=== PATIENT | female | born 1985 | race Hispanic/Latino ===

== ENCOUNTER 2017-04-26 15:29 | Emergency (ER) | payer MEDICAID ==
[~2017-04-26] VITALS: Ht 157.5 cm; Wt 136.0 kg
[~2017-04-26 15:29] MED LIST: ACYCLOVIR200 MG PO; AMPICILLIN500 MG PO; ANAPROX275 MG OR; CLARITHROMYC500 M2 PO; EQ OMEPRAZOLE20 MG PO; FERR SULFATE325 MG PO; FLEXERIL OR; HYDROCHLOR12.5 MG/CA PO; IBUPROFEN600 MG PO; LABETALOL100 MG PO; LISINOPRIL2.5 MG PO; LORTAB5 PO; NAPROSYN500 MG PO; OMEPRAZOLE20 MG PO; PRENATAL1 TA1 PO; PREVPAC PO; ULTRAM50 MG OR; VICODIN1 TAB OR
[2017-04-26 16:03] LABS: HEMOGLOBIN 12.3 g/dl (12.0-16.0); IMMATURE GRANULOCYTES 0.3 % (0.0-1.0); MEAN CELL VOLUME 84.5 fL CALC (80.0-100.0); MEAN CORPUSCULAR HGB 28.9 pG CALC (26.0-32.0); MEAN CORPUSCULAR HGB CONC 34.2 g/L CALC (32.0-36.0); NEUT# 4.84 thou/uL (2.00-7.15); RED BLOOD COUNT 4.26 mill/uL (4.20-5.60); RED CELL DISTRI WIDTH 12.1 % (11.5-15.5)
[2017-04-26 16:44] LABS: ALBUMIN 4.5 g/dL (3.2-5.0); ALKALINE PHOSPHATASE 91 u/l (38-126); ANION GAP 15 (6-22 (CALC)); BILIRUBIN, TOTAL 0.5 mg/dL (0.0-1.4); BUN 20 mg/dL (7-17); BUN/CREATININE RATIO 29 (12-20 (CALC)); CALCIUM 9.2 mg/dL (8.4-10.2); CARBON DIOXIDE 22 mmol/l (22-30); CHLORIDE 108 mmol/l (95-108); CREATININE 0.7 mg/dL (0.5-1.0); GFR > 60 ML/MIN (>=60 (CALC)); GFR FOR AFR.AMER. > 60 ML/MIN (>=60 (CALC)); GLUCOSE 93 mg/dL (65-105); LIPASE 91 u/l (23-300); SGOT/AST 34 u/l (14-36); SGPT/ALT 38 u/l (9-52); SODIUM 141 mmol/l (137-146); TOTAL PROTEIN 7.5 g/dL (6.3-8.2)
[2017-04-26 17:22] LABS: URINE BILIRUBIN - DIPSTICK NEGATIVE (NEGATIVE); URINE BLOOD DIPSTICK TRACE-INTACT (NEGATIVE); URINE CLARITY CLEAR; URINE COLOR YELLOW; URINE GLUCOSE - DIPSTICK NEGATIVE (NEGATIVE); URINE KETONE NEGATIVE (NEGATIVE); URINE NITRITE - DIPSTICK NEGATIVE (Negative); URINE PH 5.5 (4.5-8.0); URINE PROTEIN - DIPSTICK NEGATIVE (NEG-TRACE); URINE SPECIFIC GRAVITY >=1.030; URINE UROBILINOGEN - DIPSTICK 0.2 E.U./dL (0.2)
[2017-04-26 17:43] LABS: URINE LEUK ESTERASE SMALL (NEGATIVE)
[2017-04-26 17:51] LABS: URINE SQUAMOUS EPITHELIAL CELL FEW EPI/hpf (0-FEW)
[2017-04-26 17:52] LABS: URINE BACTERIA RARE hpf
[2017-04-26] MEDS ORDERED: CEPHALEXIN500 M1 PO (17:56)
[2017-04-26] MEDS ORDERED: LISINOPRIL10 MG PO (17:56)
[2017-04-26 18:03] VITALS: BP 168/86
== END 2017-04-26 18:17 | disposition home or self-care (01) | DRG 690 ==
LOC: ED 15:29
PROVIDERS: Family Medicine
DX: N39.0 Urinary tract infection, site not specified (principal); I10 Essential (primary) hypertension; H53.8 Other visual disturbances; R11.2 Nausea with vomiting, unspecified; R51 Headache; Y92.89 Other specified places as the place of occurrence of the external cause

== ENCOUNTER 2017-12-23 11:07 | Observation (INO) | payer BC ==
[2017-12-23] VITALS (9 sets, daily range): BP systolic 116–159; BP diastolic 62–99
[~2017-12-23] VITALS: Ht 157.5 cm; Wt 86.8 kg
[~2017-12-23 11:07] MED LIST changes: +CEPHALEXIN500 M1 PO; +LISINOPRIL10 MG PO
--- NOTE | 2017-12-23 11:25 | NUR ---
PATIENT AMBULATED TO ROOM WITH STEADY GAIT
[2017-12-23 11:46] LABS: HEMATOCRIT 39.3 % (37.0-47.0); HEMOGLOBIN 13.3 g/dl (12.0-16.0); IMMATURE GRANULOCYTES 0.2 % (0.0-1.0); MEAN CORPUSCULAR HGB 28.4 pG CALC (26.0-32.0); MEAN CORPUSCULAR HGB CONC 33.8 g/L CALC (32.0-36.0); NEUT# 3.82 thou/uL (2.00-7.15); RED BLOOD COUNT 4.68 mill/uL (4.20-5.60); RED CELL DISTRI WIDTH 12.4 % (11.5-15.5)
--- NOTE | 2017-12-23 12:07 | NUR ---
PT STATES SHE RAN OUT OF HER BLOOD PRESSURE MEDICATIONS APPROX TWO WEEKS AGO AND HAD GONE TO FOR SCRIPT, BUT HAS NOT PICKED IT UP YET. DENIES ANY HEADACHE , DENIES ANY V/N.
[2017-12-23 12:13] LABS: ANION GAP 16 (6-22 (CALC)); BUN 11 mg/dL (7-17); BUN/CREATININE RATIO 19 (12-20 (CALC)); CARBON DIOXIDE 26 mmol/l (22-30); CHLORIDE 105 mmol/l (95-108); CREATININE 0.5 mg/dL (0.5-1.0); GFR > 60 ML/MIN (>=60 (CALC)); GFR FOR AFR.AMER. > 60 ML/MIN (>=60 (CALC)); POTASSIUM 4.3 mmol/l (3.5-5.1); SODIUM 143 mmol/l (137-146)
--- NOTE | 2017-12-23 12:40 | NUR ---
PT BECAME NAUSEATED, NOTIFIED AND ORDERS RECEIVED
--- NOTE | 2017-12-23 12:44 | NUR ---
PT WAS GIVEN THE [facility], COMPUTER TURNED OFF BEFORE I SUBMITTED, I HAD THROWN BOTTLE AWAY SO COULD NOT SCAN MEDICATIONL.
--- NOTE | 2017-12-23 12:59 | NUR ---
BLOOD PRESSURE DOWN AND PT STATES FEELS MUCH BETTER.
--- NOTE | 2017-12-23 14:06 | NUR ---
PT STATES SHE STILL DOESNT FEEL GOOD, STARTED FEELING WEAK AGAIN, NO VOMITING, JUST NAUSEATED. ADVISED OF POSSIBLE ADMISSION, PT VOICES UNDERSTANDING
[2017-12-23 14:11] LABS: SGOT/AST 47 u/l (14-36); SGPT/ALT 51 u/l (9-52)
--- NOTE | 2017-12-23 14:16 | NUR ---
BLOOD PRESSURE RETAKEN AND BLOOD PRESSURE IS 188/106, NOTIFIED. ORDERS WILL BE RECEIVED FOR JOSELIN MARTIN
--- NOTE | 2017-12-23 14:37 | NUR ---
WENT IN TO START CARDIZEM DRIP, PTS FAMILY IS AT BEDSIDE, BLOOD PRESSURE IS DOWN TO 160/89, NOTIFIED, WILL KEEP CARDIZEM ON HAND BUT WILL NOT GIVE AT THIS TIME
--- NOTE | 2017-12-23 14:51 | NUR ---
PT STATES AFTER THE PHENERGAN SHOT DOESNT FEEL NAUSEATED. EYES ARE RED FROM CRYING.
--- NOTE | 2017-12-23 15:36 | NUR ---
REPORT CALLED TO RAUL FOR CONTINUATION OF CARE
--- NOTE | 2017-12-23 15:46 | NUR ---
PT TAKEN TO FLOOR PER CARDIAC MONITER.
--- NOTE | 2017-12-23 15:54 | NUR ---
Pt arrived to floor via stretcher from ER at 1554 alert and oriented. Presented to ER for c/o elevated blood pressure. C/o headache pain. Afebrile, no c/o chest pain or SOB. No N&V. S/L to right AC 20 gauge. Skin warm to touch and mildly clammy. Assessment completed, family in waiting room. IV Flushed with 5cc NS w/o difficulty. Mother and niece in room. Mother only speaks croatian. Niece translates for her. V/S stable, afebrile. No acute distress at this time.
--- NOTE | 2017-12-23 17:31 | NUR ---
PT RESTING QUIETLY. C/O PHOTOPHOBIA AND SUPRAPUBIC PAIN. STATES SHE HAS AN IUD SINCE 03/2016 AND HAS PAIN UPON INTERCOURSE. NO MENSTRAL CYCLES. DR. MASCORRO HERE TO SEE PATIENT. AFEBRILE, V/S WNL, NO ACUTE DISTRESS.
--- NOTE | 2017-12-23 17:51 | NUR ---
PT UP TO BSC MOST OF THIS SHIFT. ALERT, SLEEPING INTERMITTENLY. DENIES, CHEST PAIN, SOB, NAUSEA. NO ACUTE DISTRESS NOTED. HERE FOR A SHORT VISIT. PT IS PLEASANT AND APPROPRIATE. V/S WNL, AFEBRILE.
--- NOTE | 2017-12-23 17:55 | NUR ---
PT UP IN BSC, SLEEPING. CONTINUES TO VOICE CONCERNS REGARDING SKIN ITCHING. BENADRYL GIVEN WITH SEDATIVE RESULTS. NO RED OR OPEN AREAS NTED. SKIN IS DRY. NO EDEMA, AFEBRILE, V/S WNL. SPEECH IS CLEAR AND PT IS APPROPRIATE. NO ACUTE DISTRESS.
--- NOTE | 2017-12-23 18:25 | NUR ---
PT TEARFUL. STATES SHE IS HAVING TROUBLE COPING A BUSY MOTHER OF 4 CHILDREN WITH NO FATHER FIGURE ACCOUNTABLE. 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 SHE DOES NOT EXPRESS ANY THOUGHTS OF HURTING HERSELF OR OTHERS. SHE IS ANXIOUS AND STATES THIS IS WHY HER BLOOD PRESSURE IS HIGH. CURRENTLY IN NO ACUTE DISTRESS. MEDS GIVEN.
--- NOTE | 2017-12-23 19:25 | NUR ---
DR CLAY NOTIFIED OF PT CRYING IN BED. ORDERS RECEIVED WILL MEDICATE PER ORDERS
--- NOTE | 2017-12-23 19:45 | NUR ---
PT RESTING IN BED CRYING. VISITORS IN ROOM. PT STATES THAT SHE FEELS NAUSEATED. INFORMED PT THAT SHE WAS GIVEN ANTI NAUSEA MEDS AT 1800. PT VERBALIZED UNDERSTANDING. MEDICATED WITH 1MG OF ATIVAN PER MD ORDERS. CALL LIGHT IN REACH. INSTRUCTED PT TO CALL FOR ANY ASSISTANCE. PT VERBALIZED UNDERSTANDING. SHIFT ASSESSMENT COMPLETED AT THIS TIME. WILL CONTINUE TO MONITOR
--- NOTE | 2017-12-23 20:32 | NUR ---
SPOKE WITH VISITORS THAT PT NEEDS TO REST.
--- NOTE | 2017-12-23 21:35 | NUR ---
PT RESTING IN BED WITH EYES CLOSED. RESP ARE EVEN AND UNLABORED. NO DISTRESS NOTED. CALL LIGHT IN REACH. WILL CONTINUE TOMONITOR
--- NOTE | 2017-12-24 | NUR ---
PT RESTING IN BED WITH EYES CLOSED. RESP ARE EVEN AND UNLABORED. NO DISTRESS NOTED. IV REMAINS PATENT. REMAINS SR ON MONITOR. CALL LIGHT IN REACH. WILL CONTINUE TO MONITOR
[2017-12-24 01:00] VITALS: BP 114/58
--- NOTE | 2017-12-24 02:03 | NUR ---
PT RESTING IN BED WITH EYES CLOSED. RESP ARE EVEN AND UNLABORED. NO DISTRESS NOTED. IV PATENET. REMAINS SR ON MONITOR. CALL LIGHT IN REACH. WILL CONTINUE TO MONITOR
[2017-12-24 03:00] VITALS: BP 102/64
--- NOTE | 2017-12-24 04:03 | NUR ---
PT RESTING IN BED WITH EYES CLOSED. RESP ARE EVEN AND UNLABORED. NO DISTRESS NOTED. CALL LIGHT IN REACH. WILL CONTINUE TO MONITOR
--- NOTE | 2017-12-24 05:29 | NUR ---
LAB INTO DRAW AM LABS
--- NOTE | 2017-12-24 05:53 | NUR ---
PT ASSISTED TO BSC. PT VOIDED. PT ASSISTED BACK TO BED. CALL LIGHT IN REACH. WILL CONTINUE TO MONITOR
[2017-12-24 06:00] VITALS: BP 98/65
[2017-12-24 06:22] VITALS: BP 98/65
[2017-12-24 06:22] LABS: HEMATOCRIT 39.2 % (37.0-47.0); HEMOGLOBIN 13.2 g/dl (12.0-16.0); MEAN CELL VOLUME 85.4 fL CALC (80.0-100.0); MEAN CORPUSCULAR HGB 28.8 pG CALC (26.0-32.0); MEAN CORPUSCULAR HGB CONC 33.7 g/L CALC (32.0-36.0); RED BLOOD COUNT 4.59 mill/uL (4.20-5.60); RED CELL DISTRI WIDTH 12.5 % (11.5-15.5)
[2017-12-24 06:37] LABS: ANION GAP 19 (6-22 (CALC)); BUN 12 mg/dL (7-17); BUN/CREATININE RATIO 16 (12-20 (CALC)); CARBON DIOXIDE 23 mmol/l (22-30); CHLORIDE 103 mmol/l (95-108); CREATININE 0.7 mg/dL (0.5-1.0); GFR > 60 ML/MIN (>=60 (CALC)); GFR FOR AFR.AMER. > 60 ML/MIN (>=60 (CALC)); POTASSIUM 4.1 mmol/l (3.5-5.1); SODIUM 140 mmol/l (137-146)
--- NOTE | 2017-12-24 07:30 | NUR ---
BREAKFAST TRAY SET UP
--- NOTE | 2017-12-24 07:45 | NUR ---
PT RESTING IN BED, ALERT AND ABLE TO MAKE NEEDS KNOWN. PT REPORTS FEELING DIZZY WHEN SITTING UP. SR ON TELEMETRY. PT DENIES CHEST PAIN, SOB OR DISTRESS AT THIS TIME. LS CLEAR THROUGHOUT. BSX4 ACTIVE. CALL LIGHT IN REACH, WILL MONITOR.
[2017-12-24 08:00] VITALS: BP 118/66
--- NOTE | 2017-12-24 08:00 | NUR ---
PT RESTING IN BED, SR ON TELEMETRY. AFEBRILE. PT DENIES CHEST PAIN,SOB OR DISTRESS AT THIS TIME. CALL LIGHT IN REACH, WILL MONITOR
[2017-12-24 09:25] VITALS: BP 122/65
--- NOTE | 2017-12-24 09:30 | NUR ---
PT UP TO BSC, TOLERATED WELL. WILL MONITOR
--- NOTE | 2017-12-24 10:00 | NUR ---
CHAPARRITA BALL AT FOR ASSESSMENT.
--- NOTE | 2017-12-24 10:15 | NUR ---
DR. LANG AT BS FOR ASSESSMENT
[2017-12-24] MEDS ORDERED: LISINOPRIL20 MG PO ×2 (10:30)
--- NOTE | 2017-12-24 11:04 | NUR ---
PT RESTING IN BED, EYES CLOSED. PT OFFERS NO COMPLAINTS AT THIS TIME. WILL MONITOR
--- NOTE | 2017-12-24 11:55 | NUR ---
DISCONTINUED SL TO RAC, CATHETER INTACT. PT TOLERATED WELL.
--- NOTE | 2017-12-24 12:10 | NUR ---
Discharge instructions given. Patient verbalizes understanding of same. Discharged in stable condition via Wheelchair to Home with family. All belongings sent with pt.
== END 2017-12-24 12:10 | disposition home or self-care (01) | DRG 305 ==
LOC: ED 11:07 → ED-I 13:52 → ED 14:15 → ICU 14:16
PROVIDERS: Family Medicine; ADMIT Internal Medicine; ATTEND Internal Medicine
DX: I16.0 Hypertensive urgency (principal); I10 Essential (primary) hypertension; F17.210 Nicotine dependence, cigarettes, uncomplicated; Z91.14 Patient's other noncompliance with medication regimen
CPT/HCPCS: J2060

== ENCOUNTER 2018-09-23 12:16 | Emergency (ER) | payer BC ==
[~2018-09-23] VITALS: Ht 157.5 cm; Wt 86.4 kg
[~2018-09-23 12:16] MED LIST changes: +LISINOPRIL20 MG PO
[2018-09-23 13:31] LABS: URINE BILIRUBIN - DIPSTICK NEGATIVE (NEGATIVE); URINE BLOOD DIPSTICK TRACE-LYSED (NEGATIVE); URINE COLOR YELLOW; URINE GLUCOSE - DIPSTICK NEGATIVE (NEGATIVE); URINE KETONE NEGATIVE (NEGATIVE); URINE LEUK ESTERASE NEGATIVE (NEGATIVE); URINE NITRITE - DIPSTICK NEGATIVE (Negative); URINE PROTEIN - DIPSTICK TRACE mg/dL (NEG-TRACE); URINE SPECIFIC GRAVITY >=1.030; URINE UROBILINOGEN - DIPSTICK 0.2 E.U./dL (0.2)
[2018-09-23 13:32] LABS: HEMOGLOBIN 12.6 g/dl (12.0-16.0); IMMATURE GRANULOCYTES 0.2 % (0.0-5.0); MEAN CELL VOLUME 83.9 fL CALC (80.0-100.0); MEAN CORPUSCULAR HGB 27.8 pG CALC (26.0-32.0); MEAN CORPUSCULAR HGB CONC 33.2 g/L CALC (32.0-36.0); NEUT# 4.5 thou/uL (2.00-7.15); RED BLOOD COUNT 4.53 mill/uL (4.20-5.60); RED CELL DISTRI WIDTH 11.9 % (11.5-15.5)
[2018-09-23 13:40] LABS: BARBITURATES NEGATIVE (NEGATIVE); COCAINE NEGATIVE (NEGATIVE); METHADONE NEGATIVE (NEGATIVE); OXCYCODONE NEGATIVE (NEGATIVE); TETRAHYDROCANNABIONOL NEGATIVE (NEGATIVE); TRICYLIC ANTIDEPRESSANTS NEGATIVE (NEGATIVE)
[2018-09-23 13:54] LABS: ALBUMIN 4.4 g/dL (3.2-5.0); ALKALINE PHOSPHATASE 106 u/l (38-126); ANION GAP 14 (6-22 (CALC)); BILIRUBIN, TOTAL 0.5 mg/dL (0.0-1.4); BUN 10 mg/dL (7-17); BUN/CREATININE RATIO 20 (12-20 (CALC)); CARBON DIOXIDE 26 mmol/l (22-30); CHLORIDE 103 mmol/l (95-108); CREATININE 0.5 mg/dL (0.5-1.0); GFR > 60 ML/MIN (>=60 (CALC)); GFR FOR AFR.AMER. > 60 ML/MIN (>=60 (CALC)); POTASSIUM 4.4 mmol/l (3.5-5.1); SGOT/AST 23 u/l (14-36); SODIUM 139 mmol/l (137-146); TOTAL PROTEIN 7.7 g/dL (6.3-8.2)
[2018-09-23] MEDS ORDERED: PYRIDIUM200 MG PO (15:03)
[2018-09-23] MEDS ORDERED: TORADOL PO (15:03)
[2018-09-23 15:19] VITALS: BP 178/120
== END 2018-09-23 15:28 | disposition home or self-care (01) | DRG 761 ==
LOC: ED 12:16
PROVIDERS: Emergency Medicine
DX: N83.201 Unspecified ovarian cyst, right side (principal); I10 Essential (primary) hypertension
CPT/HCPCS: Q9967

== ENCOUNTER 2019-04-28 10:30 | Emergency (ER) | payer SELFPAY ==
[~2019-04-28] VITALS: Ht 157.5 cm; Wt 100.0 kg
[~2019-04-28 10:30] MED LIST changes: +PYRIDIUM200 MG PO; +TORADOL PO
[2019-04-28 10:55] LABS: HEMATOCRIT 39.3 % (37.0-47.0); HEMOGLOBIN 13.2 g/dl (12.0-16.0); IMMATURE GRANULOCYTES 0.3 % (0.0-5.0); MEAN CELL VOLUME 82.6 fL CALC (80.0-100.0); MEAN CORPUSCULAR HGB 27.7 pG CALC (26.0-32.0); MEAN CORPUSCULAR HGB CONC 33.6 g/L CALC (32.0-36.0); NEUT# 7.96 thou/uL (2.00-7.15); RED BLOOD COUNT 4.76 mill/uL (4.20-5.60); RED CELL DISTRI WIDTH 12.6 % (11.5-15.5)
[2019-04-28 11:19] LABS: ANION GAP 15 (6-22 (CALC)); BUN 8 mg/dL (7-17); BUN/CREATININE RATIO 16 (12-20 (CALC)); CARBON DIOXIDE 22 mmol/l (22-30); CHLORIDE 105 mmol/l (95-108); CREATININE 0.5 mg/dL (0.5-1.0); GFR > 60 ML/MIN (>=60 (CALC)); GFR FOR AFR.AMER. > 60 ML/MIN (>=60 (CALC)); SODIUM 138 mmol/l (137-146)
[2019-04-28] MEDS ORDERED: NORVASC5 M1 PO (12:31)
[2019-04-28 12:35] VITALS: BP 204/100
== END 2019-04-28 12:43 | disposition home or self-care (01) | DRG 305 ==
LOC: ED 10:30
PROVIDERS: Family Medicine
DX: I10 Essential (primary) hypertension (principal)

== ENCOUNTER 2020-03-22 01:17 | Inpatient (IN) | payer SELFPAY ==
[~2020-03-22] VITALS: Ht 157.5 cm; Wt 90.9 kg
[2020-03-22] VITALS (9 sets, daily range): BP systolic 127–194; BP diastolic 58–122
[~2020-03-22 01:17] MED LIST changes: +NORVASC5 M1 PO
[2020-03-22 01:50] LABS: HEMOGLOBIN 12.8 g/dl (12.0-16.0); IMMATURE GRANULOCYTES 0.4 % (0.0-5.0); MEAN CORPUSCULAR HGB 27.9 pG CALC (26.0-32.0); MEAN CORPUSCULAR HGB CONC 33.7 g/dL CAL (32.0-36.0); NEUT# 7.68 thou/uL (2.00-7.15); RED BLOOD COUNT 4.58 mill/uL (4.20-5.60); RED CELL DISTRI WIDTH 12.6 % (11.5-15.5); URINE BILIRUBIN - DIPSTICK NEGATIVE (NEGATIVE); URINE BLOOD DIPSTICK TRACE-INTACT (NEGATIVE); URINE COLOR YELLOW; URINE GLUCOSE - DIPSTICK NEGATIVE (NEGATIVE); URINE KETONE NEGATIVE (NEGATIVE); URINE LEUK ESTERASE NEGATIVE (NEGATIVE); URINE NITRITE - DIPSTICK NEGATIVE (Negative); URINE PROTEIN - DIPSTICK TRACE mg/dL (NEG-TRACE); URINE UROBILINOGEN - DIPSTICK 0.2 E.U./dL (0.2)
[2020-03-22 01:54] LABS: HCG SERUM/URINE (NEG/POS) NEGATIVE (NEGATIVE)
--- NOTE | 2020-03-22 01:59 | NUR ---
PATIENT EXTREMELY AGITATED AND ANXIOUS, STATES HISTORY OF ANXIETY/PANIC ATTACS BUT FEELS TAHT THIS IS DIFFERENT, NO C/O PAIN OR DISCOMFORT, MILD DISTRESS, RESPIRATIONS LABORED, AWAITING DIAGNOSTIC RESULTS.
--- NOTE | 2020-03-22 02:00 | NUR ---
fan placed in patient room, lights dimmed fo rcomfort, patient resting quiertl, respirations uneasy on 2l nc, no c/o pain, awake and alert.
[2020-03-22 02:04] LABS: ALBUMIN 4.1 g/dL (3.2-5.0); ANION GAP 12 (6-22 (CALC)); BILIRUBIN, TOTAL 0.3 mg/dL (0.0-1.4); BUN 8 mg/dL (7-17); BUN/CREATININE RATIO 13 (12-20 (CALC)); CARBON DIOXIDE 25 mmol/l (22-30); CHLORIDE 104 mmol/l (95-108); CREATININE 0.7 mg/dL (0.5-1.0); GFR > 60 ML/MIN (>=60 (CALC)); GFR FOR AFR.AMER. > 60 ML/MIN (>=60 (CALC)); POTASSIUM 3.7 mmol/l (3.5-5.1); SODIUM 137 mmol/l (137-146)
[2020-03-22 02:09] LABS: ALKALINE PHOSPHATASE 184 u/l (38-126); SGOT/AST 55 u/l (14-36)
--- NOTE | 2020-03-22 02:35 | NUR ---
PATIENT TO RADIOLOGY FOR CT, NO C/O PAIN, NO S/S OF DISTRESS NOTED, RESPIRATIONS EVEN AND UNLABORED ON O2@2L NC.
[2020-03-22 02:39] LABS: C-REACTIVE PROTEIN < 0.5 mg/dL (0-0.9)
--- NOTE | 2020-03-22 03:00 | NUR ---
PATIENT RETURNED FROM RADIOLOGY, RESPIRATIONS LABORED, PLACED BACK ON O@2L NC AFTER AMBULATING TO THE BATHROOM, ABT TREATMENT CONTINUED.
--- NOTE | 2020-03-22 03:56 | NUR ---
HAND OFF REPORT GIVEN TO ALFREDO MEJIAS.
--- NOTE | 2020-03-22 04:15 | NUR ---
PT ARRIVED TO MS2 VIA STRETCHER ACCOMPANIED BY ER NURSE. PT TREMBLING, TEARFUL, STATES HX OF ANXIETY. PT AMBULATED WITH STEADY GAIT TO BED, ORIENTED PT TO ROOM AND CALL LIGHT, DISCUSSED POC. PT ALERT AND ORIENTED X3, BP ELVATED AT 194/122 HR 110, 02 2.5L NC SPO2 96%. DEMONSTRATED BREATHING TECHNIQUES WITH PT, SHE'S C/O NAUSEA AND PANIC ATTACK. WILL NOTIFY MD FOR ORDERS. ADMISSION ASSESSMENT COMPLETED. CALL LIGHT IN REACH,CONTINUE TO MONITOR.
--- NOTE | 2020-03-22 04:20 | NUR ---
PATIENT MEDICATED FOR ELEVATED BLOOD PRESSURE BEFORE LEAVING ED AND BEING TAKEN TO THE INPATIENT ROOM.
--- NOTE | 2020-03-22 05:06 | NUR ---
ED PHYSICIAN CALLED AND NOTIFIED OF PT'S BP, ANXIETY AND NAUSEA. RECEIVED ORDERS. DISCUSSED MEDICATIONS WITH PT, BP RECHECKED STILL ELEVATED. MEDICATED PER SEP. WILL RETURN TO RECHECK BP, CALL LIGHT IN REACH,CONTINUE TO MONITOR.
--- NOTE | 2020-03-22 06:02 | NUR ---
PT RESTING IN BED, STATES SHE FEELS BETTER, SHE IS CALMER, BP RECHECKED, ED PHYSICIAN NOTIFIED OF NEW BP, NO NEW ORDERS RECEIVED, CALL LIGHT IN REACH,CONTINUE TO MONITOR.
--- NOTE | 2020-03-22 07:50 | NUR ---
ASSESSMENT IS COMPLETED: IV SITE IS FREE FROM REDNESS OR EDEMA. HR IS REG,PULSES ARE STRONG X4, ABD IS SOFT WITH ACTIVE BS. BREATH SOUNDS ARE CLEAR AND DIMINISHED. O2 @ 2LITERS WITH NC/. TELE MONITOR IN PLACE. PT C/O SORE THROAT THIS AM.
--- NOTE | 2020-03-22 12:03 | NUR ---
PT HAS BEEN RELAXING AND TALKING WITH FAMILY ON THE PHONE. IV SITE IS FREE FROM REDNESS OR EDEMA.
--- NOTE | 2020-03-22 16:15 | NUR ---
PT IS RELAXING IN BED WAS GIVEN MOTRIN FOR A HEADACHE. IV SITE IS FREE FROM REDNESS OR EDEMA.
--- NOTE | 2020-03-22 18:19 | NUR ---
RECHECKED PT'S BP WAS 155/71 PT STATED" I FELL ASLEEP" ENCOURAGED TO LAY ON HER STOMACH, IF SHE CAN. VERBALIZED UNDERSTANDING.,
--- NOTE | 2020-03-22 19:45 | NUR ---
PT APPEARS VERY ANXIOUS, A LITTLE TEARY AND FEARFUL. PHYSICIAN NOTIFIED AND ORDERS RECEIVED FOR ANXIOUSNESS.
--- NOTE | 2020-03-22 20:06 | NUR ---
REPORT TAKEN FROM DARIEL SILVA. PT ASSESSMENT AND VITALS COMPLETE. PT IS ALERT AND ORIENTED X3 AND AMBULATORY IN HER ROOM. PT APPEARS TO BE A LITTLE ANXIOUS WITH A QUIVER IN HER VOICE WHEN RESPONDING TO QUESTIONS. IV SIGHT IS HEALTHY WITH NS RUNNING AT 125 PER HR. DISCUSSED POC. PT ENCOURAGED TO CALL FOR ANY NEEDS; CALL LUNA WITHIN REACH; WILL CONTINUE TO OBSERVE.
--- NOTE | 2020-03-22 21:00 | NUR ---
PT MEDICATED W/XANAX FOR ANXIETY AND NEW IV SITE PLACED. 22 RW W/NS@125. OLD EMS SITE APPEARED HEATHY AND WAS INTACT UPON REMOVAL, BUT WAS POSITIONAL AND EMS. PT TOLERATED WELL. PT TALKED ABOUT HER EXPERIENCE AND SYMPTOMS UPON COMING TO ED, APPEARED TO BE THERAPEUTIC. PT LEFT CALM AND RETURNING A FAMILY PHONE CALL. ENCOURAGED HER TO CALL FOR ANY ISSUES THAT MAY ARISE OR NEEDS, VERBALIZED UNDERSTANDING, CALL LIGHT AT SIDE AND BED IN LOWEST POSITION.
--- NOTE | 2020-03-22 21:36 | NUR ---
IVF REPLENISHED AT THIS TIME. NO S/O DISTRESS NOTED. CALL LIGHT AT SIDE.
--- NOTE | 2020-03-23 00:47 | NUR ---
PT RESTING IN BED IN NO APPARENT DISTRESS. PT WAKES EASILY.ORIENTED X3. DENIES PAIN. CALL LUNA WITHIN REACH. WILL CONTINUE TO OBSERVE.
--- NOTE | 2020-03-23 04:20 | NUR ---
pt called to report feeling like vomiting. provided emesis bag, cool cloth and medicated w/zofran for nausea. no observed emesis at this time.
[2020-03-23 04:30] VITALS: BP 134/68
[2020-03-23 04:36] LABS: IMMATURE GRANULOCYTES 0.7 % (0.0-5.0); MEAN CELL VOLUME 85.9 fL CALC (80.0-100.0); MEAN CORPUSCULAR HGB 27.4 pG CALC (26.0-32.0); NEUT# 13.87 thou/uL (2.00-7.15); RED BLOOD COUNT 3.68 mill/uL (4.20-5.60); RED CELL DISTRI WIDTH 13.1 % (11.5-15.5)
[2020-03-23 04:38] LABS: HEMATOCRIT 31.6 % (37.0-47.0); HEMOGLOBIN 10.1 g/dl (12.0-16.0)
[2020-03-23 05:03] LABS: ANION GAP 13 (6-22 (CALC)); BILIRUBIN, TOTAL 0.2 mg/dL (0.0-1.4); BUN 10 mg/dL (7-17); BUN/CREATININE RATIO 21 (12-20 (CALC)); C-REACTIVE PROTEIN < 0.5 mg/dL (0-0.9); CARBON DIOXIDE 22 mmol/l (22-30); CHLORIDE 110 mmol/l (95-108); CREATININE 0.5 mg/dL (0.5-1.0); GFR > 60 ML/MIN (>=60 (CALC)); GFR FOR AFR.AMER. > 60 ML/MIN (>=60 (CALC)); POTASSIUM 4.2 mmol/l (3.5-5.1); SGOT/AST 36 u/l (14-36); SODIUM 141 mmol/l (137-146)
[2020-03-23 05:09] LABS: ALKALINE PHOSPHATASE 77 u/l (38-126); TOTAL PROTEIN 5.4 g/dL (6.3-8.2)
--- NOTE | 2020-03-23 08:37 | NUR ---
DR MORTENSEN AT BEDSIDE DISCUSSING POC WITH PT
--- NOTE | 2020-03-23 08:40 | NUR ---
RECIEVED REPORT FROM ALFREDO MONZON. PT RESTING IN SEMI FOWLERS SOPTIION UPON ENTERING ROOM. INTRODUCED SELF TO PT AND DISCUSSED POC.ASSESSMENT AND VITALS COMPLETED.RESPIRATIONS ARE EVEN AND UNLABORED WITH NO SIGNS OF DISTRESS NOTED.ORDERS TO REMOVE 2L NC TO SEE HOW PT TOLERATES. LUNG SOUNDS ARE CLEAR. HEART RHYTHM IS NORMAL WITH TELE IN PLACE. BOWEL SOUNDS ARE ACTIVE IN ALL QUADRANTS. RADIAL AND PEDAL PULSES ARE STRONG WITH NORMAL CAPILLARY REFILL. #22G IN RIGHT WRIST RUNNING WITH NS PER ORDER, SITE APPEARS HEALTHY AND PATENT. PT COMPLAINS OF 2/10 PAIN IN CHEST WHEN DE4EP BREATHING. MOTRIN TO BE ADMINISTERED WITH MORNING MEDS. PT STATING AT 97% ROOM AIR BEFORE LEAVING ROOM. EDUCATED PT THAT IF NEEDED, 2L NC WAS AT BEDSIDE. PT VERBAILZED UNDERSTANDING.PT DENIES ANY OTHER NEEDS AT THIS TIME. ALL SAFETY PRECAUTIONS ARE IN PLACE WITH CALL LIGHT IN REACH.WILL CONTINUE TO MONITOR.
[2020-03-23 08:47] VITALS: BP 142/81
[2020-03-23 11:00] VITALS: BP 165/97
[2020-03-23] MEDS ORDERED: KEFLEX500 MG PO (11:05)
[2020-03-23] MEDS ORDERED: ZPAK PO (11:05)
[2020-03-23] MEDS ORDERED: AMLODIPINE BESYL5 MG PO (11:05)
[2020-03-23] MEDS ORDERED: MEDDOSEPAK PO (11:07)
--- NOTE | 2020-03-23 11:25 | NUR ---
REASSESSMENT OF PAIN AT THIS TIME RESULTING IN 3/10. RESPIRATIONS ARE EVEN AND UNLABORED. PT PRESENTS WITH SOME ANXIETY, XANAX TO BE ADMINISTRED. ALL SAFETY AND ISOLATION PRECAUTIONS ARE IN PLACE WITH CALL LIGHT IN REACH. WILL CONTINUE TO MONITOR
--- NOTE | 2020-03-23 12:53 | NUR ---
EDUCATED PT ON DISCHARGE INSTRUCTIONS AND NEW MEDICATIONS NORVASC, ZPAK, KEFLEX, AND DESROL DOSE PACK. PT VERBAILZED UNDERSTANDING. IV REMOVED, PT TOLERATED WELL. AWAITING FOR TRANSORTATION AT THIS TIME. INFORMED PT TO CALL WHEN RIDE IS HERE, PT VERBAILZED UNDERSTANDING. WILL CONTINUE TO MONITOR
--- NOTE | 2020-03-23 13:36 | NUR ---
Discharge instructions given. Patient verbalizes understanding of same. Discharged in stable condition via Wheelchair to Home with family. All belongings sent with pt. PT DISCHARGE VIA WHEELCHAIR IN STABLE CONDITION ACCOMPAINED BY GRETEL SANDS. PT LEFT WITH ALL DISCHARGE INSTRUCTIONS AND BELONGINGS.
== END 2020-03-23 13:34 | disposition home or self-care (01) | DRG 177 ==
LOC: ED 01:17 → ED-I 03:22 → ED 03:48 → MS2 03:49
PROVIDERS: Emergency Medicine; Nurse Practitioner Family; ADMIT Internal Medicine; ATTEND Internal Medicine
DX: U07.1 COVID-19 (principal); J12.89 Other viral pneumonia; I10 Essential (primary) hypertension; F41.9 Anxiety disorder, unspecified; F17.200 Nicotine dependence, unspecified, uncomplicated
CPT/HCPCS: Q9967

== ENCOUNTER 2023-07-12 09:04 | Emergency (ER) | payer SELFPAY ==
[2023-07-12] VITALS (15 sets, daily range): BP systolic 125–224; BP diastolic 84–149
[~2023-07-12] VITALS: Ht 157.5 cm; Wt 86.1 kg
[~2023-07-12 09:04] MED LIST changes: +AMLODIPINE BESYL5 MG PO; +KEFLEX500 MG PO; +MEDDOSEPAK PO; +ZPAK PO
[2023-07-12 11:07] LABS: BASO% 0.4 % (0-3); IMMATURE GRANULOCYTES 0.2 % (0.0-5.0); MEAN CELL VOLUME 81.4 fL CALC (80.0-100.0); MEAN CORPUSCULAR HGB 26.8 pG CALC (26.0-32.0); MONO% 4.8 % (2-13); NEUT# 6.91 thou/uL (2.00-7.15); NEUT% 75.6 % (42-76); RED BLOOD COUNT 4.62 mill/uL (4.20-5.60); RED CELL DISTRI WIDTH 12.2 % (11.5-15.5)
[2023-07-12 11:11] LABS: HEMATOCRIT 37.6 % (37.0-47.0); HEMOGLOBIN 12.4 g/dl (12.0-16.0)
[2023-07-12 11:18] LABS: ANION GAP 14 (6-22 (CALC)); BUN 13 mg/dL (7-17); BUN/CREATININE RATIO 22 (12-20 (CALC)); CARBON DIOXIDE 22 mmol/l (22-30); CHLORIDE 106 mmol/l (95-108); CREATININE 0.6 mg/dL (0.5-1.0); GFR FOR AFR.AMER. > 60 ML/MIN (>=60 (CALC)); GFR OTHER RACES > 60 ML/MIN (>=60 (CALC)); POTASSIUM 3.7 mmol/l (3.5-5.1); SGOT/AST 30 u/l (14-36); SODIUM 138 mmol/l (137-146)
[2023-07-12 11:22] LABS: ALBUMIN 4.4 g/dL (3.2-5.0); ALKALINE PHOSPHATASE 119 u/l (38-126); BILIRUBIN, TOTAL 0.6 mg/dL (0.02-1.3); TOTAL PROTEIN 7.5 g/dL (6.3-8.2)
== END 2023-07-12 11:52 | disposition home or self-care (01) | DRG 880 ==
LOC: ED 09:04
PROVIDERS: Family Medicine
DX: F41.9 Anxiety disorder, unspecified (principal); R07.9 Chest pain, unspecified; I10 Essential (primary) hypertension; E66.9 Obesity, unspecified